=== PATIENT | female | born 1995 | race Caucasian/White ===

== ENCOUNTER 2017-10-11 09:40 | Emergency (ER) | payer OTHER, MEDICAID ==
[~2017-10-11] VITALS: Ht 175.3 cm; Wt 75.0 kg
[~2017-10-11 09:40] MED LIST: BACTRIM DS TAB1 EACH PO; HYDROCODONE-AP1 EAC6 PO; IBUPROFEN 800800 MG PO; KEFLEX500 MG PO; MACROBID 100 M100 M1 PO; ONDANSETRON HCL4 M2 PO; TESSALON PERLE100 MG PO; TOPAMAX50 MG PO
[2017-10-11] MEDS ORDERED: AFRIN15 ML NS (10:16)
[2017-10-11] MEDS ORDERED: CLARITIN10 MG PO (10:16)
[2017-10-11] MEDS ORDERED: KEFLEX500 M1 PO (10:16)
[2017-10-11 10:42] VITALS: BP 134/96
== END 2017-10-11 10:43 | disposition home or self-care (01) ==
LOC: M.ERS 09:40
DX: J02.9 Acute pharyngitis, unspecified (principal); G43.909 Migraine, unspecified, not intractable, without status migrainosus; N80.9 Endometriosis, unspecified; F17.200 Nicotine dependence, unspecified, uncomplicated; Z88.5 Allergy status to narcotic agent

== ENCOUNTER 2019-09-06 07:19 | Emergency (ER) | payer OTHER ==
[~2019-09-06] VITALS: Ht 175.3 cm; Wt 77.1 kg
[~2019-09-06 07:19] MED LIST changes: +AFRIN15 ML NS; +CLARITIN10 MG PO; +KEFLEX500 M1 PO
[2019-09-06 08:27] LABS: ABSOLUTE LYMPHOCYTES 0.7 thou/uL (0.8-5.3); ABSOLUTE MONOCYTES 0.4 thou/uL (0.0-1.2); BASOPHILS 0.2 %; EOSINOPHILS 0.3 %; HEMATOCRIT 41.6 % (37.0-47.0); HEMOGLOBIN 14.8 gm/dL (12.0-15.0); LYMPHOCYTES 10.3 %; MCH 31.6 pg (26.0-34.0); MCHC 35.7 g/dL (28.0-37.0); MCV 88.5 fL (80.0-100.0); MONOCYTES 5.2 %; MPV 8.4 fl. (7.2-11.1); NUCLEATED RBCS 0 /100WBC; PLATELET COUNT* 221 thou/uL (150-400); RDW-CV 12.7 % (10.5-14.5); WBC 7.2 thou/uL (4.0-11.0)
[2019-09-06 08:28] LABS: INFLUENZA A ANTIGEN Negative (Negative); INFLUENZA B ANTIGEN Negative (Negative)
[2019-09-06 08:29] LABS: CALCIUM 8.2 mg/dL (8.5-10.1); CREATININE 0.8 mg/dL (0.6-1.3); POTASSIUM 3.4 mmol/L (3.5-5.1)
[2019-09-06 08:34] LABS: ALBUMIN 3.8 g/dL (3.4-5.0); TOTAL BILIRUBIN 1.1 mg/dL (<0.1-1.0); TOTAL PROTEIN 7.3 g/dL (6.4-8.2)
[2019-09-06] MEDS ORDERED: ZOFRAN ODT4 MG PO (09:24)
[2019-09-06 09:27] LABS: URINE BILIRUBIN NEGATIVE (Negative); URINE BLOOD TRACE (Negative); URINE CLARITY CLEAR; URINE COLOR YELLOW; URINE GLUCOSE-RANDOM NEGATIVE (Negative); URINE KETONES NEGATIVE (Negative); URINE LEUKOCYTES-REFLEX NEGATIVE (Negative); URINE NITRITE-REFLEX NEGATIVE (Negative); URINE PROTEIN NEGATIVE (Negative); URINE SPECIFIC GRAVITY >= 1.030 (1.005-1.030); URINE UROBILINOGEN 0.2 E.U./dl (0.2-1.0)
[2019-09-06 10:32] VITALS: BP 117/70
== END 2019-09-06 10:33 | disposition home or self-care (01) ==
LOC: M.ERS 07:19
PROVIDERS: Personal Emergency Response Attendant
DX: K52.9 Noninfective gastroenteritis and colitis, unspecified (principal); E86.0 Dehydration; G43.909 Migraine, unspecified, not intractable, without status migrainosus; Z88.5 Allergy status to narcotic agent; N80.9 Endometriosis, unspecified

== ENCOUNTER 2020-11-04 06:48 | Inpatient (IN) | payer OTHER ==
[~2020-11-04] VITALS: Ht 175.3 cm; Wt 79.9 kg
[~2020-11-04 06:48] MED LIST changes: +ZOFRAN ODT4 MG PO
[2020-11-04 07:03] VITALS: BP 160/61
[2020-11-04 07:32] LABS: ABSOLUTE EOSINOPHILS 0.1 thou/uL (0.0-0.7); ABSOLUTE LYMPHOCYTES 1.6 thou/uL (0.8-5.3); ABSOLUTE MONOCYTES 0.4 thou/uL (0.0-1.2); ABSOLUTE NEUTROPHILS 3.8 thou/uL (1.6-8.1); BASOPHILS 0.6 %; EOSINOPHILS 1.3 %; HEMOGLOBIN 13.4 gm/dL (12.0-15.0); LYMPHOCYTES 26.9 %; MCH 31.6 pg (26.0-34.0); MCHC 35.2 g/dL (28.0-37.0); MCV 89.7 fL (80.0-100.0); MONOCYTES 7.1 %; NUCLEATED RBCS 0 /100WBC; PLATELET COUNT* 223 thou/uL (150-400); POLYS 64.1 %; RBC 4.24 mil/uL (4.20-5.00); RDW-CV 12.8 % (10.5-14.5); WBC 5.9 thou/uL (4.0-11.0)
[2020-11-04 07:36] LABS: CALCIUM 8.6 mg/dL (8.5-10.1); CREATININE 0.8 mg/dL (0.6-1.3); POTASSIUM 3.7 mmol/L (3.5-5.1)
[2020-11-04 07:38] LABS: APTT 27.7 Seconds (25.0-31.3); INR 1.1; PROTIME 11.8 Seconds (9.20-11.50)
[2020-11-04 07:50] LABS: ALBUMIN 3.9 g/dL (3.4-5.0); CK-MB MASS 0.8 ng/mL (<0.5-3.6); TOTAL BILIRUBIN 0.7 mg/dL (<0.1-1.0)
[2020-11-04] MEDS ORDERED: ZOFRAN ODT4 MG SUBLING (08:28)
[2020-11-04 10:40] VITALS: BP 114/59
[2020-11-04 10:47] LABS: CALCIUM 8.6 mg/dL (8.5-10.1); CREATININE 0.9 mg/dL (0.6-1.3); PHOSPHORUS* 3.4 mg/dL (2.5-4.9)
[2020-11-04 12:07] LABS: AMP/METHAMP Negative (Negative); BARBITURATES Negative (Negative); BENZODIAZEPINES Negative (Negative); COCAINE Negative (Negative); METHADONE Negative (Negative); OPIATES Negative (Negative); PCP Negative (Negative); THC POSITIVE (Negative)
[2020-11-04 12:30] VITALS: BP 120/73
[2020-11-04] MEDS ORDERED: NAPROSYN500 M1 PO (13:58)
[2020-11-04 16:38] VITALS: BP 119/72
[2020-11-04 16:48] LABS: MAGNESIUM 2.1 mg/dL (1.8-2.4); PHOSPHORUS* 3.5 mg/dL (2.5-4.9)
--- NOTE | 2020-11-04 18:45 | NUR ---
RECEIVED REPORT FROM ER. PT ARRIVED TO TELE FLOOR AROUND 1055. ADMISSION ASSESSMENT, HISTORY AND EDUCATION COMPLETED CHARTED. MEDS PER EMAR. MASSAGE OPERATOR PLACED. PT OMA INTO THE 30'S MULTIPLE TIMES - CARDIOLOGY AWARE, NO ORDERS RECEIVED. CARDIOLOGY TO SEE PT IN AM/. PT ASYMPTOMATIC WITH BRADYCARDIA. UP WITH SBA TO BATHROOM. NAUSEATED- ZOFRAN GIVEN WITH SOME RELIEF. BOYFRIEND AT BEDSIDE THIS AFTERNOON. CALL LIGHT WITHIN REACH, HOURLY ROUNDING. FALL PRECAUTIONS IN PLACE.
[2020-11-04 20:00] VITALS: BP 105/50
--- NOTE | 2020-11-04 20:00 | NUR ---
RECEIVED REPORT AND ASSUMED CARE OF PT. ASSESSMENT COMPLETED. PT ON TELEMETRY SHOWING SB WITH HR INTO 50'S. STATES SOME NAUSEA BUT EATING POTATO CHIPS AT PRESENT TIME. STATES CONSTANTLY LIGHTHEADED. WILL CONT TO MONITOR AND ASSIST NEEDED.
[2020-11-04 23:55] VITALS: BP 111/61
[2020-11-05 04:24] VITALS: BP 104/67
[2020-11-05 04:40] LABS: ABSOLUTE EOSINOPHILS 0.1 thou/uL (0.0-0.7); ABSOLUTE LYMPHOCYTES 2.4 thou/uL (0.8-5.3); ABSOLUTE MONOCYTES 0.4 thou/uL (0.0-1.2); ABSOLUTE NEUTROPHILS 2.7 thou/uL (1.6-8.1); BASOPHILS 0.4 %; EOSINOPHILS 1.8 %; HEMATOCRIT 36.7 % (37.0-47.0); MCH 31.8 pg (26.0-34.0); MCHC 35.5 g/dL (28.0-37.0); MCV 89.5 fL (80.0-100.0); MONOCYTES 7.3 %; MPV 8.1 fl. (7.2-11.1); NUCLEATED RBCS 0 /100WBC; PLATELET COUNT* 211 thou/uL (150-400); POLYS 48.5 %; RDW-CV 12.6 % (10.5-14.5); WBC 5.6 thou/uL (4.0-11.0)
[2020-11-05 04:49] LABS: ALBUMIN 3.6 g/dL (3.4-5.0); CALCIUM 8.7 mg/dL (8.5-10.1); CREATININE 0.9 mg/dL (0.6-1.3); POTASSIUM 3.8 mmol/L (3.5-5.1); TOTAL BILIRUBIN 0.4 mg/dL (<0.1-1.0); TOTAL PROTEIN 6.4 g/dL (6.4-8.2)
--- NOTE | 2020-11-05 07:01 | NUR ---
AWAKE MOST OF NIGHT. REINFORCED NEED TO ASSIST HER TO BR. GAIT STEADY. NPO AFTER MN FOR POSS TESTING. TELEMETRY CONT TO SHOW SB WITH RATE INTO 40'S WHEN SLEEPING. HS GOALS OF REST AND SAFETY ACHIEVED. HOURLY ROUNDING OBSERVED.
[2020-11-05 08:03] VITALS: BP 111/50
--- NOTE | 2020-11-05 09:42 | NUR ---
ASSUMED CARE OF PT THIS AM AROUND 0715- PLANNING ASSISTANT IN PLACE ORDERED, TRACING SB- UPON ASSESSMENT PT NOTED TO BE RESTING IN BED, EYES CLOSED- PT A&O X4- CONT OF B/B- SBA WITH TRANSFERS FOR SAFETY- LCTA, RESP EVEN AND UN-LABORED- VSS, O2 SAT 96% ON RA- ABD SOFT/FLAT/NON-TENDER, BS X4 QUADS-LAST BM REPORTED X2 DAYS AGO- PT CURRENTLY NPO FOR CARDIO CONSULT- IV NOTED TO RIGHT AC INTACT AND SL- PT DENIES ANY C/O PAIN/DISCOMFORT- CALL LIGHT AND PERSONAL BELONGINGS WITH IN REACH- ALL NEEDS MET AT THIS TIME
--- NOTE | 2020-11-05 11:08 | EKG ---
[place] [address] ELECTROCARDIOGRAM REPORT Name: JOSE J WONG Room: [address] ADM IN M.R.#: [id number] Admission: 11/04/20 Attend Phys: Jewel Cohen Discharge: Date of : 89 Date of Service: 11/04/20 0708 Report #: [id number] THIS REPORT FOR: //name// [facility] ED Test Date: 2020-11-04 Test Time: 07:08:10 Pat Name: JOSE J WONG Department: Room: [facility] Gender: F Pluck Separator: CCD : 1995 Requested By: Nick Goncalves Order Number: [id number] MD: Woodrow Casillas Measurements Intervals [place] Rate: 47 P: 33 NE: 157 QRS: 60 QRSD: 103 T: 12 QT: 410 QTc: 363 Interpretive Statements Sinus bradycardia Minimal ST depression, inferior leads Compared to ECG 10/26/2015 16:41:27 ST (T wave) deviation now present Sinus rhythm no longer present Electronically Signed On 11-05-2020 11:08:19 CDT by Woodrow Casillas [email or web address] <ELECTRONICALLY SIGNED> By: Woodrow Casillas MD, FACC 11/05/20 1108 0708 0708 Woodrow Casillas MD, FAC /EPI
[2020-11-05 11:09] VITALS: BP 113/53
--- NOTE | 2020-11-05 13:59 | NUR ---
Pt is A&O. Resides at home with family. Independent. No DME. No hx of HH or SNF. Anticipate dc later today, pending cards. No needs.
[2020-11-05 16:00] VITALS: BP 142/93
[2020-11-05 20:00] VITALS: BP 109/53
--- NOTE | 2020-11-05 20:00 | NUR ---
RECEIVED REPORT AND ASSUMED CARE OF PT, ASSESSMENT COMPLETED. PT STATES FEELS GOOD, DENIES DIZZINESS OR NAUSEA. INDEPENDENT BRP WITH STEADY GAIT. TELEMETRY ON SHOWING SB. WILL CONT TO MONITOR AND ASSIST NEEDED.
[2020-11-06 00:22] VITALS: BP 105/53
[2020-11-06 04:27] VITALS: BP 102/49
--- NOTE | 2020-11-06 07:25 | NUR ---
SLEPT WELL TONIGHT. GAIT STEADY TO AND FROM BR. NO COMPLAINTS VOICED. NO CHANGE IN ASSESSMENT. TELEMETRY CONT TO SHOW SB. HS GOALS OF REST AND SAFETY ACHIEVED. HOURLY ROUNDING OBSERVED.
[2020-11-06 07:34] VITALS: BP 126/57
--- NOTE | 2020-11-06 08:54 | NUR ---
ASSUMED CARE OF PT THIS AM AROUND 0715- HYDRAULIC RUBBISH COMPACTOR MECHANIC IN PLACE ORDERED, TRACING SB- UPON ASSESSMENT PT NOTED TO BE RESTING IN BED- PT A&O X4- CONT OF B/B- UP AD-AYANA IN ROOM, STEADY GAIT NOTED- LCTA, RESP EVEN AND UN-LABORED- VSS, O2 SAT 97% ON RA- ABD SOFT/ROUND/NON-TENDER, BS X4 QUADS- LAST BM REPORTED X2 DAYS AGO- IV NOTED TO LEFT FA INTACT AND SL- GOOD PO INTAKE NOTED THIS AM WITH BRAKFAST- PT DENIES ANY C/O PAIN/DISCOMFORT AT THIS TIME- CALL LIGHT AND PERSONAL BELONGINGS WITH IN REACH- ALL NEEDS MET AT THIS TIME
[2020-11-06 11:47] VITALS: BP 108/60
[2020-11-06] MEDS ORDERED: ONDANSETRON HCL4 M2 PO (12:48)
[2020-11-06] MEDS ORDERED: PREDNISONE 10 M10 M1 PO (12:51)
[2020-11-06 13:41] VITALS: BP 108/60
[2020-11-06 14:02] VITALS: BP 108/60
--- NOTE | 2020-11-06 15:21 | CON ---
[address] [address] CONSULTATION Name: JOSE J WONG Room: [address] IN [place].#: [id number] Admission: 11/04/20 Attend Phys: Yomaira Ornelas Discharge: 11/06/20 Date of : 89 Report #: [id number] THIS REPORT FOR: cc: FAM - No family physician/PCP FAM - No family physician/PCP ~ Woodrow Casillas MD [facility] DATE OF SERVICE: 11/05/2020 CARDIOLOGY CONSULTATION HISTORY OF PRESENT ILLNESS: The patient is a 25-year-old single white female who I was asked to see in the hospital today after she is noted to be bradycardic. The history is obtained from the patient. She has never been here to [place] before. However, she has an extensive past medical history. She usually lives in [place], [place]. She has a history of syncope. She has been evaluated both by Neurology and Cardiology in the past. Neurology thought she may have had seizures and she was placed on Topamax for migraines. Cardiology had her wear a monitor in the past. Apparently, no significant arrhythmias were noted. She stays fairly active. She has never had a heart murmur. She does note that during her , she developed hypertension, was placed on high blood pressure medications. She also had gestational diabetes. She was doing well until 2 nights ago, she was at work when she felt nausea and vomited. She was brought here to [place]. She is noted to be bradycardic. Cardiology consultation requested. She denies any palpitations, syncope, blood in her vomit, diarrhea, abdominal pain. PAST MEDICAL HISTORY: Her last menstrual period was August. She does have an IUD in place. She is currently on no medications. 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 FAMILY HISTORY: Her grandmother has a pacemaker. SOCIAL HISTORY: She is single. 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 She smoked a pack of cigarettes a day until a year ago. No longer smokes. She does smoke marijuana occasionally. Rarely drinks alcohol. REVIEW OF SYSTEMS: She has had no history of stroke, asthma, liver disease. She had surgery for recurrent UTIs in the past. She had cervical cancer and required cryoablation. No psychiatric illness. She has a history of eczema. PHYSICAL EXAMINATION: GENERAL: Revealed a young female, who appeared in no distress. CURRENT VITAL SIGNS: Blood pressure 110/60, pulse is 60. [place] [address] CONSULTATION Name: JOSE J WONG Room: [address] IN [place]..#: [id number] Admission: 11/04/20 Attend Phys: Yomaira Ornelas Discharge: 11/06/20 Date of : [birth year] Report #: [id number] HEENT: She is anicteric. Conjunctivae pink. Mucous membranes moist. NECK: Veins do not appear distended. CHEST: Clear to auscultation. CARDIOVASCULAR: Regular rate and rhythm, no murmur. ABDOMEN: Soft. EXTREMITIES: Had no edema. SKIN: Cool and dry. NEUROLOGIC: Nonfocal. LYMPH: No adenopathy. MUSCULOSKELETAL: No joint effusion. ECG on admission showed sinus bradycardia, nonspecific ST-segment changes. Her workup, she had a portable chest x-ray on admission that showed normal heart size and clear lung mendoza. LABORATORY WORK: Sodium 142, creatinine 0.9. Liver function studies were normal. Lipase was 133. Troponin 0.06. BNP 48. TSH 2.0. Her white blood cell count 5.6, hemoglobin 13. Her test was negative. COVID antigen stat test was negative. IMPRESSION AND RECOMMENDATIONS: 1. Sinus bradycardia, suspect vasovagal. I would avoid beta-blockers. Recommend no further cardiac evaluation at this time. 2. Nausea and vomiting, possible gastritis. 3. Previous tobacco abuse. 4. History of cervical cancer. <ELECTRONICALLY SIGNED> By: Woodrow Casillas MD, [facility] 11/06/20 1521 1706 02Woodrow Casillas MD, FACC /nt
== END 2020-11-06 14:00 | disposition home or self-care (01) | DRG 394 ==
LOC: M.ERS 06:48 → M.TBA-ER 09:09 → M.2W 09:09
PROVIDERS: Family Medicine; ADMIT Internal Medicine; ATTEND Internal Medicine
DX: R11.15 Cyclical vomiting syndrome unrelated to migraine (principal); E27.40 Unspecified adrenocortical insufficiency; R07.89 Other chest pain; R00.1 Bradycardia, unspecified; G43.909 Migraine, unspecified, not intractable, without status migrainosus; F17.210 Nicotine dependence, cigarettes, uncomplicated; F12.10 Cannabis abuse, uncomplicated; Z20.822 Contact with and (suspected) exposure to COVID-19; E86.0 Dehydration; N80.9 Endometriosis, unspecified; N30.20 Other chronic cystitis without hematuria; R11.2 Nausea with vomiting, unspecified; Z41.1 Encounter for cosmetic surgery; Z88.6 Allergy status to analgesic agent; Z82.49 Family history of ischemic heart disease and other diseases of the circulatory system